=== PATIENT | male | born 1940 | race Caucasian/White ===

== ENCOUNTER 2016-04-28 09:41 | Outpatient (CLI) | payer MEDICARE, BC, OTHER ==
--- NOTE | 2016-04-28 11:47 | RAD ---
EXAM: LEFT SHOULDER 3 VIEWS: HISTORY: Pain. COMPARISON: None. 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 The glenohumeral joint space appears to b e preserved. No fracture or dislocation. IMPRESSION: 1. No fracture or dislocation. 2. 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 POS: [facility]
== END 2016-04-28 09:42 | disposition home or self-care (01) ==
LOC: MADRAD 09:41
PROVIDERS: ATTEND General Practice
DX: M25.512 Pain in left shoulder (principal); M19.012 Primary osteoarthritis, left shoulder

== ENCOUNTER 2016-07-18 12:30 | Outpatient (CLI) | payer MEDICARE, BC, OTHER ==
--- NOTE | 2016-07-18 14:22 | RAD ---
CHEST PA AND LATERAL TWO VIEWS: History: 75-year-old male with shortness of breath and long-time smoking history. FINDINGS: Atherosclerosis of the aorta. Heart size is within normal limits. The lungs are clear. IMPRESSION: No acute intrathoracic disease. POS: [facility]
== END 2016-07-18 12:31 | disposition home or self-care (01) ==
LOC: MADRAD 12:30
PROVIDERS: ATTEND General Practice
DX: R06.02 Shortness of breath (principal); Z72.0 Tobacco use
CPT/HCPCS: 71020

== ENCOUNTER 2019-05-22 19:48 | Emergency (ER) | payer MEDICARE | END 2019-05-22 20:20 | disposition home or self-care (01) | LOC: MADERS 19:48 | DX: S30.1XXA Contusion of abdominal wall, initial encounter (principal); I10 Essential (primary) hypertension; E11.9 Type 2 diabetes mellitus without complications; F17.210 Nicotine dependence, cigarettes, uncomplicated; Z79.4 Long term (current) use of insulin; Z79.82 Long term (current) use of aspirin; Z79.899 Other long term (current) drug therapy; X50.0XXA Overexertion from strenuous movement or load, initial encounter | CPT/HCPCS: 99283 ==

== ENCOUNTER 2022-08-18 10:41 | Emergency (ER) | payer MEDICARE, OTHER ==
[2022-08-18] MEDS ORDERED: Orphenadrine Citrate 60 MG/2 ML VIAL ONE (11:38)
== END 2022-08-18 11:58 | disposition home or self-care (01) ==
LOC: MADERS 10:41
DX: M43.6 Torticollis (principal); K21.9 Gastro-esophageal reflux disease without esophagitis; E11.9 Type 2 diabetes mellitus without complications; I10 Essential (primary) hypertension; F17.210 Nicotine dependence, cigarettes, uncomplicated
CPT/HCPCS: 96372; 99283; J2360